=== PATIENT | female | born 1980 | race Caucasian/White ===

== ENCOUNTER → 2020-12-12 | Outpatient (CLI) | payer OTHER | LOC: EXRD 12-03 14:00 | DX: E04.9 Nontoxic goiter, unspecified (principal) | CPT/HCPCS: 76536 ==

== ENCOUNTER → 2021-09-16 | Outpatient (CLI) | payer OTHER | LOC: KOH-I 12:05 | DX: R05.9 Cough, unspecified (principal); R91.8 Other nonspecific abnormal finding of lung field | CPT/HCPCS: 71046 ==

== ENCOUNTER → 2021-09-23 | Outpatient (CLI) | payer OTHER | LOC: CT 08:12 | DX: I77.819 Aortic ectasia, unspecified site (principal); E04.2 Nontoxic multinodular goiter | CPT/HCPCS: 71270; Q9967 ==